=== PATIENT | female | born 1945 | race Caucasian/White ===

== ENCOUNTER 2018-10-02 17:33 | Inpatient (IN) | payer OTHER ==
[~2018-10-02] VITALS: Ht 170.2 cm; Wt 75.3 kg
[2018-10-02 17:39] VITALS: BP 119/60
[2018-10-02 18:59] LABS: ABSOLUTE EOSINOPHILS 0.1 thou/uL (0.0-0.7); ABSOLUTE LYMPHOCYTES 1.1 thou/uL (0.8-5.3); ABSOLUTE MONOCYTES 0.9 thou/uL (0.0-1.2); ABSOLUTE NEUTROPHILS 5.3 thou/uL (1.6-8.1); BASOPHILS 0.4 %; EOSINOPHILS 1.1 %; HEMATOCRIT 37.6 % (37.0-47.0); HEMOGLOBIN 12.9 gm/dL (12.0-15.0); LYMPHOCYTES 15.1 %; MCH 33.6 pg (26.0-34.0); MCHC 34.4 g/dL (28.0-37.0); MCV 97.9 fL (80.0-100.0); MONOCYTES 12.1 %; MPV 9.9 fl. (7.2-11.1); NUCLEATED RBCS 0 /100WBC; PLATELET COUNT* 115 thou/uL (150-400); POLYS 71.3 %; RBC 3.84 mil/uL (4.20-5.00); RDW-CV 13.9 % (10.5-14.5); WBC 7.4 thou/uL (4.0-11.0)
[2018-10-02 19:00] LABS: APTT 28.5 Seconds (25.0-31.3); PROTIME 10.2 Seconds (9.20-11.50)
[2018-10-02 19:07] LABS: ALBUMIN 3.3 g/dL (3.4-5.0); ALKALINE PHOSPHATASE 80 U/L (46-116); ANION GAP 8 mmol/L (7-16); BUN 14 mg/dL (7-18); CALCIUM 8.5 mg/dL (8.5-10.1); CHLORIDE 105 mmol/L (98-107); CO2 28 mmol/L (21-32); CREATININE 0.8 mg/dL (0.6-1.3); GLUCOSE 99 mg/dL (70-99); POTASSIUM 3.8 mmol/L (3.5-5.1); SGOT 11 U/L (15-37); SGPT 14 U/L (30-65); SODIUM 141 mmol/L (136-145); TOTAL BILIRUBIN 0.4 mg/dL (<0.1-1.0); TOTAL PROTEIN 6.7 g/dL (6.4-8.2); TROPONIN-I LEVEL <0.06 ng/mL (<0.06)
[2018-10-02 19:50] VITALS: BP 125/53
[2018-10-02 20:10] VITALS: BP 137/58
[2018-10-02 22:16] LABS: URINE BILIRUBIN NEGATIVE (Negative); URINE BLOOD NEGATIVE (Negative); URINE CLARITY CLEAR; URINE COLOR YELLOW; URINE GLUCOSE-RANDOM NEGATIVE (Negative); URINE KETONES NEGATIVE (Negative); URINE LEUKOCYTES-REFLEX NEGATIVE (Negative); URINE NITRITE-REFLEX NEGATIVE (Negative); URINE PROTEIN NEGATIVE (Negative); URINE SPECIFIC GRAVITY 1.015 (1.005-1.030); URINE UROBILINOGEN 0.2 E.U./dl (0.2-1.0)
[2018-10-03 04:00] VITALS: BP 132/52
--- NOTE | 2018-10-03 05:45 | NUR ---
PT ADMITTED TO ROOM 305 FROM ER. VSS ON RA. ASSESSMENT COMPLETED. PT WORRIED ABOUT HER WHOM SHE LIVES WITH AND TAKES CARE OF. PT SAYS HER HAS STAGE 5 AL[employer]ERS AND SHE TAKES CARE OF HIM. SHE DOES NOT HAVE ANY CHILDREN OR FAMILY MEMBERS TO ASSIST IN CARE WHILE IN HOSPTIAL. PT'S FRIEND STAYED WITH PT'S LAST NIGHT BUT SHE HAS TO GO TO WORK THIS AM. PT WORRIED AND CONCERNED ON WHO TO TAKE CARE OF WHEN FRIEND LEAVES FOR WORK. PT ORIENTED TO ROOM AND CALL LIGHT. PT AGREES AND SIGNS FALL PRECAUTION. 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 NOSE SWAP DONE TO MAINTAIN OR RULE OUT ISOLATION. PAIN MEDS GIVENS THIS SHIFT. RELIEF NOTED. IV ABX INFUSED. NPO. ORTHO CONSULT TO BE CALLED IN THIS AM. CASE MGT CONSULT. WILL CONTINUE TO MONITOR CALL LIGHT WITHIN REACH. WILL CONTINUE TO MONITOR.
[2018-10-03 07:11] VITALS: BP 128/54
--- NOTE | 2018-10-03 10:22 | EKG ---
[place] [address] ELECTROCARDIOGRAM REPORT Name: DOROTHEA DEVLIN Room: [address] ADM IN [facility]#: [id number] Admission: 10/02/18 Attend Phys: Gabrielle Del Toro MD Discharge: Date of : 41 Report #: [id number] THIS REPORT FOR: //name// [facility] ED Test Date: 2018-10-02 Test Time: 18:28:10 Pat Name: DOROTHEA DEVLIN Department: Room: [facility] Gender: F Snow Plow Operator: : 1945 Requested By: Luis Soares Order Number: [id number] MD: Akhil Vaughn Measurements Intervals [place] Rate: 64 P: 79 VA: 182 QRS: 50 QRSD: 127 T: 53 QT: 440 QTc: 454 Interpretive Statements Sinus rhythm Nonspecific intraventricular conduction delay Compared to ECG 04/01/2007 13:09:22 no change Electronically Signed On 10-03-2018 10:22:23 CDT by Akhil Vaughn [email or web address] <ELECTRONICALLY SIGNED> By: Akhil Vaughn MD, [facility] 10/03/18 1022 182 27 Akhil Vaughn MD, [facility] /EPI
--- NOTE | 2018-10-03 11:10 | NUR ---
SW met with pt to complete initial assessment, introduce self, and SW role. Pt is alert, oriented. Pt lives at home with her and is the caregiver for as he has dementia. Pt explained that pt friend is with pt for now but pt friend will be working this weekend. SW discussed in home services/private duty care and pt said that pt friend called about this and pt is aware this would be $22 an hour most likely. SW discussed pt [place] benefits may help cover some of the cost or reimburse possibly. Pt aware she may need rehab; SW questioned fdc care if needed for pt but pt would much rather have pt remain in home with in home care. SW called pt friend and left message with VA benefit possible assistance with cost of in home care and offered pt friend to call SW back with any other questions or concerns. Pt independent prior to falling and hospitalization; pt does not have any DME or hx with HH or SNF. SW to continue to follow to assist with safe dc planning.
[2018-10-03 16:06] VITALS: BP 113/49
--- NOTE | 2018-10-03 16:08 | NUR ---
ASSESSMENT COMPLETE. PT ALERT AND ORIENTED X4. CT OREDERED THIS AM AND ORTHO REPORTS NO NEED FOR SURGERY AND PUT IN WEIGHT BEARING ORDERS. PT/OT ORDERED. PT VSS. DENIES N/V. TOLERATING MEALS. TAYLOR IN PLACE. IV FLUIDS INFUSING. PHYSICAL THERAPY ABLE TO HELP PATIENT TO STANDING POSITION AT BEDSIDE WITH WALKER AND GAIT BELT. PT HAS FAMILY AT BEDSIDE. SEE ASSESSMENT AND VITALS FOR OTHER DETAILS. CALL LIGHT WITHIN REACH, WILL CONTINUE PLAN OF CARE
--- NOTE | 2018-10-03 19:09 | NUR ---
I RECEIVED THE PATIENT A TRANSFER FROM AT 1815. SHE IS ALERT AND ORIENTED X4 AND IS A Q2 TURN. BED IS IN THE LOW LOCKED POSITION AND CALL LIGHT IS IN REACH. HOURLY ROUNDING IS COMPLETED AND PATIENT NEEDS ARE MET. PAIN IS DENIED. ORTHO SAYS SHE DOES NOT NEED SURGERY. CASE MANAGEMENT HAS BEEN CONTACTED TO HELP ASSIST WITH THE . WILL CONTINUE TO MONITOR.
[2018-10-03 21:00] VITALS: BP 115/40
[2018-10-04 04:19] LABS: ABSOLUTE EOSINOPHILS 0.1 thou/uL (0.0-0.7); ABSOLUTE LYMPHOCYTES 1.4 thou/uL (0.8-5.3); ABSOLUTE NEUTROPHILS 3.1 thou/uL (1.6-8.1); BASOPHILS 0.4 %; EOSINOPHILS 1.2 %; HEMATOCRIT 31.8 % (37.0-47.0); HEMOGLOBIN 11.1 gm/dL (12.0-15.0); LYMPHOCYTES 25.5 %; MCH 34.4 pg (26.0-34.0); MCV 98.5 fL (80.0-100.0); MONOCYTES 18.6 %; MPV 9.4 fl. (7.2-11.1); NUCLEATED RBCS 0 /100WBC; PLATELET COUNT* 88 thou/uL (150-400); POLYS 54.3 %; RBC 3.23 mil/uL (4.20-5.00); RDW-CV 13.3 % (10.5-14.5); WBC 5.6 thou/uL (4.0-11.0)
[2018-10-04 04:22] LABS: CALCIUM 8.1 mg/dL (8.5-10.1); CREATININE 0.7 mg/dL (0.6-1.3); POTASSIUM 3.6 mmol/L (3.5-5.1)
--- NOTE | 2018-10-04 05:21 | NUR ---
PT ALERT AND ORIENTED. VSS ON RA. ASSESSMENT COMPLETED. PT DID NOT GET ANY PAIN MEDS THIS SHIFT. IV ABX INFUSED ORDERED. PT VERBALIZES DESIRE TO BE SENT TO A FACILITY WITH ACCOMODATIONS FOR HER AND HER . PT SLEPT MOST OF SHIFT. FALL PRECAUTIONS IN PLACE. CALL LIGHT WITHIN REACH. PT PLEASANT AND CALLS OUT APPROPRIATELY. WILL CONTINUE TO MONITOR.
[2018-10-04 08:00] VITALS: BP 157/67
--- NOTE | 2018-10-04 12:23 | NUR ---
SW met with pt to provide private duty and community resources and also options for SNF or LTC living if needed in the future. Pt said that she is paying the $22 an hour at the moment for pt to have a caregiver in the home. SW to continue to follow to assist with safe dc planning and discuss with pt possible SNF rehab needed.
--- NOTE | 2018-10-04 18:53 | NUR ---
AM ASSESSMENT AND VITAL SIGNS COMPLETED DOCUMENTED. PT WAS VERY TEARFUL TODAY, SHE IS VERY WORRIED ABOUT HER THAT IS DEPENDENT ON HER. PRN PAIN AND ANXIETY MEDICATIONS GIVEN WITH SOME RELIEF. PT GIVEN A LOT OF REASSURANCE AND SW IS WORKING WITH HER PERSONAL ISSUES. FALL PRECAUTIONS AND HOURLY ROUNDING CONTINUE.
[2018-10-04 20:30] VITALS: BP 104/43
[2018-10-05 04:16] LABS: ABSOLUTE EOSINOPHILS 0.1 thou/uL (0.0-0.7); ABSOLUTE LYMPHOCYTES 1.5 thou/uL (0.8-5.3); ABSOLUTE NEUTROPHILS 2.4 thou/uL (1.6-8.1); BASOPHILS 0.4 %; EOSINOPHILS 1.4 %; HEMATOCRIT 31.4 % (37.0-47.0); HEMOGLOBIN 10.8 gm/dL (12.0-15.0); LYMPHOCYTES 29.7 %; MCH 34.2 pg (26.0-34.0); MCHC 34.3 g/dL (28.0-37.0); MCV 99.6 fL (80.0-100.0); MPV 9.5 fl. (7.2-11.1); NUCLEATED RBCS 0 /100WBC; PLATELET COUNT* 91 thou/uL (150-400); POLYS 48.5 %; RBC 3.15 mil/uL (4.20-5.00); RDW-CV 14.3 % (10.5-14.5); WBC 4.9 thou/uL (4.0-11.0)
--- NOTE | 2018-10-05 06:44 | NUR ---
Alert and oriented x 4. She is toe touch weight bearing on the right lower extremity, up with assist x 1 w/walker and gaitbelt. Vitals are stable. Shehas had pain meds x 3. She has slept well.
[2018-10-05 08:00] VITALS: BP 107/52
--- NOTE | 2018-10-05 14:42 | NUR ---
Received request from nurse to speak with pt re: her home situation and spouse. Pt said her is currently on service with [facility]. Pt said someone told her to call a company re: private duty caregivers since she is in the hospital and friend is working and unable to care for spouse. Pt said she signed paperwork for someone from [facility] ([phone]) to provide private duty caregivers for spouse. Spoke with Venu with [facility]. He said he would have his social media senior associate speak with pt on Sunday to try to make more affordable arrangements for spouse while pt is hospitalized. Spouse is an elopement risk and has a therapy cat. Spouse is incontinent. Pt is concerned re: her and also concerned about the finances. Spouse may qualify for respite stay with hospice. Spouse has not received care at a [place] hospital and does not have service connection. Spouse served during the [place] War. Pt said her niece lives down the road from her, but she has not spoken to her for over 3 years. Pt said she has a great niece in [place]. Pt said she does not have siblings. Asked the patient how she had a niece if she did not have siblings. Pt then remembered that she has a sister who lives in [place]. She has not spoken with her sister since their mother 4 years ago. Will await assistance [facility] worker.
--- NOTE | 2018-10-05 16:18 | NUR ---
PATIENT REFUSING TO GET UP TO CHAIR THIS AM, PATIENT EDUCATION AND ENCOURAGEMENT GIVEN. PATIENT ONLY DID LEG EXERCISES WITH PT THIS AM DUE TO NAUSEA PER PHYSICAL THERAPIST. PATIENT GIVEN PRN ZOFRAN WITH GOOD RELIEF NOTED. PATIENT REFUSING PAIN MEDICATION THIS SHIFT, PATIENT EDUCATED THAT SHE SHOULD TAKE PAIN MEDICATION AROUND DINNER TIME AT LEAST THIS EVENING, PATIENT AGREEABLE. CM SPOKE WITH PATIENT TODAY REGARDING DISCHARGE PLANS, REHAB CONS WAS PLACED BY DR. LARSON.
[2018-10-05 16:32] VITALS: BP 103/41
[2018-10-05 20:40] VITALS: BP 115/44
--- NOTE | 2018-10-06 07:19 | NUR ---
PATIENT HAS SLEPT OFF AND ON DURING THE NIGHT. NO C/O PAIN AND REFUSES NEEDING PAIN MEDICATION. VSS ON RA. PATIENT TURNED EVERY 2HRS AND PRN, AND PATIENT REPOSITIONS SELF WELL. TAYLOR TO DEPENDENT DRAINAGE WITH ADEQUATE YELLOW URINE OUTPUT. IV IN LEFT AC-SL. PATIENT INSTRUCTED TO USE CALL LIGHT WHEN NEEDING ASSISTANCE. HOURLY ROUNDS MADE. WILL CONTINUE WITH PLAN OF CARE AND NURSING TO MONITOR.
[2018-10-06 07:40] VITALS: BP 106/58
[2018-10-06 15:59] VITALS: BP 97/46
--- NOTE | 2018-10-06 16:35 | NUR ---
PATIENT UP WITH THERAPY, AMBULATING IN [place]. DR. BEGUM FROM REHAB SAW PATIENT BUT PATIENT DOES NOT QUALIFY. CM ALREADY CONSULTED FOR SNF PLACEMENT. PRN OXY IR FOR PAIN. BRANDON HOYOS'Darryl THIS EVENING, PATIENT UP TO BSC TO VOID AND DID HAVE A BM.
[2018-10-06 20:30] VITALS: BP 142/50
--- NOTE | 2018-10-07 06:08 | NUR ---
PATIENT HAS SLEPT WELL THROUGHOUT MOST OF THE NIGHT. VSS ON RA. MEDICATIONS GIVEN ORDERED AND CHARTED. PATIENT DOES C/O SOME PAIN WHEN GETTING UP NOW TO USE THE RESTROOM SINCE TAYLOR WAS REMOVED. IV IN LEFT AC-SL. PATIENT INSTRUCTED TO USE CALL LIGHT WHEN NEEDING ASSISTANCE. HOURLY ROUNDS MADE. WILL CONTINUE WITH PLAN OF CARE AND NURSING TO MONITOR.
[2018-10-07 08:00] VITALS: BP 126/65
--- NOTE | 2018-10-07 10:27 | NUR ---
SW faxed referral for SNF to pt preference of [facility] to attention admissions. [phone] fax [phone]. SW to continue to follow to assist with safe dc planning and SNF placement as recommended.
[2018-10-07] MEDS ORDERED: XANAX 0.25 MG0.25 MG PO (11:26)
[2018-10-07] MEDS ORDERED: ALBUTEROL2.5 MG/31 INH (11:26)
[2018-10-07] MEDS ORDERED: LOVENOX40 MG/0.4 SUBQ (11:28)
[2018-10-07] MEDS ORDERED: OXYCODONE HCL 55 MG PO (11:30)
[2018-10-07] MEDS ORDERED: CEFDINIR300 MG PO (11:31)
[2018-10-07] MEDS ORDERED: TRAMADOL 50 MG50 MG PO (11:33)
[2018-10-07 11:35] VITALS: BP 126/65
[2018-10-07 16:00] VITALS: BP 99/45
--- NOTE | 2018-10-07 16:40 | NUR ---
PATIENT WORKING WITH THERAPY THROUGHOUT THE SHIFT. PRN OXY IR GIVEN FOR PAIN. LARGE BM NOTED, VOIDING PER BSC. PATIENT TERAFUL AND FUSSY WITH STAFF AND PHYSICIAN AT TIMES BUT THEN CALMS DOWN SHORTLY AFTER. AWAITING INSURANCE AUTH FOR [facility].
[2018-10-07 20:20] VITALS: BP 111/32
--- NOTE | 2018-10-08 05:32 | NUR ---
PATIENT HAS SLEPT WELL THROUGHOUT THE NIGHT. VSS ON RA. PAIN MEDICATION GIVEN NEEDED AND CHARTED. PATIENT UP WITH ASSIST X 1 WITH GAITBELT AND WALKER AND IS TTWB. IV IN LEFT AC-SL. PATIENT INSTRUCTED TO USE CALL LIGHT WHEN NEEDING ASSISTANCE. HOURLY ROUNDS MADE. WILL CONTINUE WITH PLAN OF CARE AND NURSING TO MONITOR.
[2018-10-08 09:40] VITALS: BP 113/47
--- NOTE | 2018-10-08 09:53 | NUR ---
FLORENTIN called [facility] admissions and left a message for Willow to return call to check on status of referral and if there was any contact with pt insurance to determine insurance auth or not. FLORENTIN to continue to follow to assist with safe dc planning/SNF placement.
--- NOTE | 2018-10-08 13:07 | NUR ---
PT TO SMM PER W/C VAN PRN FOR PAIN GIVEN WITH FAIR EFFECT. PT REPORTS PAIN OF RT. HIP WITH MOVEMENT. PT IS ALERT AND ORIENTATED AND PLANS TO DISCHARGE TO SKILLED.DISCHARGED WITH ALL BELONGINGS AND CELL PHONE.
== END 2018-10-08 13:10 | DRG 535 ==
LOC: M.ERS 17:33 → M.TBA-ER 19:10 → M.ORTHSURG 19:10 → M.3W 19:10 → M.ORTHSURG 10-03 18:13
PROVIDERS: Emergency Medicine; Family Medicine; Internal Medicine; ADMIT Internal Medicine
DX: S72.114A Nondisplaced fracture of greater trochanter of right femur, initial encounter for closed fracture (principal); J15.6 Pneumonia due to other Gram-negative bacteria; M97.01XA Periprosthetic fracture around internal prosthetic right hip joint, initial encounter; Z96.641 Presence of right artificial hip joint; W01.0XXA Fall on same level from slipping, tripping and stumbling without subsequent striking against object, initial encounter; F17.210 Nicotine dependence, cigarettes, uncomplicated; Y93.89 Activity, other specified; Y92.89 Other specified places as the place of occurrence of the external cause; Y99.8 Other external cause status; Z88.2 Allergy status to sulfonamides; Z88.5 Allergy status to narcotic agent; Z88.8 Allergy status to other drugs, medicaments and biological substances

== ENCOUNTER → 2019-01-28 | Outpatient (CLI) | payer OTHER ==
[~2019-01-28] MED LIST: ALBUTEROL2.5 MG/31 INH; CEFDINIR300 MG PO; LOVENOX40 MG/0.4 SUBQ; OXYCODONE HCL 55 MG PO; TRAMADOL 50 MG50 MG PO; XANAX 0.25 MG0.25 MG PO
== END ==
LOC: M.RAD 13:27
DX: Z12.31 Encounter for screening mammogram for malignant neoplasm of breast (principal); N63.14 Unspecified lump in the right breast, lower inner quadrant; N63.13 Unspecified lump in the right breast, lower outer quadrant; M85.88 Other specified disorders of bone density and structure, other site; Z96.643 Presence of artificial hip joint, bilateral

== ENCOUNTER → 2019-02-06 | Outpatient (CLI) | payer OTHER ==
--- NOTE | 2019-02-07 16:06 | PATH ---
[address] [address] PATHOLOGY RPT PROCEDURE Name: MELISA DEVLIN Room: LISETTE Whitten#: [id number] Admission: 02/06/19 Date of : 41 Discharge: Report #: [id number] Path Case #: [id number] [facility] Accession Number: [id number] . 01 Material submitted: . breast - RIGHT BREAST, 5:00, 2CM FROM NIPPLE. Modifiers: right, 5:00 . 01 Clinical history: . 2.67 x 1.57 x 1.00 cm mass . 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 See comment. (ADILIA:maldonado; 02/07/2019) MBVeronica/02/07/2019 . 02 Comment: Specimen type: Image-guided core biopsies Tumor site: Right breast, 5:00, 2 cm from nipple Tumor quantitation: Approximately 75% of submitted tissues Histologic type: Ductal adenocarcinoma with prominent mucinous features Histologic grade: Low-grade (I of III) Tubules, nuclei and mitoses: 1, 2, 1 LVSI: Not identified Microcalcifications: Identified in non-neoplastic tissue Markers: Breast tumor profile pending Block: A1 . . Essentially all of the malignancy in the submitted tissue cores shows mucinous features and if the tumor mass is found to be greater than 90% of this pattern, it is consistent with mucinous carcinoma which carries a better prognosis than ductal carcinoma not otherwise specified. Scattered foci of low-grade DCIS are also seen in proximity to the invasive tumor and is noted to involve a 4 mm papilloma in A1. Breast tumor profile studies are pending on A1 and will be the subject of an addendum report. Reviewed with Dr. Mariah Lopez who agrees with the diagnosis. Jennifer (acting [facility] breast navigator) notified at approximately 1540 on 02/07/2019. . (ADILIA:maldonado; 02/07/2019) . 02 Electronically signed: . Ru Chong MD, [place] [address] PATHOLOGY RPT PROCEDURE Name: MELISA DEVLIN Room: LISETTE Whitten#: [id number] Admission: 02/06/19 Date of : 41 Discharge: Report #: [id number] Path Case #: [id number] NPI- [id number] . 01 Gross description: . Received in formalin labeled "Melisa Devlin, right breast 5:00 2 cm FN," are multiple needle cores of yellow-gill fibrofatty tissue measuring 3.4 x 2.9 x 0.7 cm in aggregate dimensions. The tissue is submitted in its entirety in cassettes A1 through A3. The cold ischemic time is 5 minutes. The total formalin fixation time is 11 hours and 13 minutes. (TSD; 02/06/2019) TOB/TOB . 02 Pathologist provided ICD-10: C50.911, D05.11, D24.1 . 02 CPT . 014836 Specimen Comment: A courtesy copy of this report has been sent to Specimen Comment: [phone], , . Specimen Comment: Report sent to ,DR ARDON / DR AC Performed at: 01 [facility] [address], [place], [place] [id number] MD Marco Kay MD Phone: [phone] Performed at: 02 [facility] [address], [place], [place] [id number] MD Ru Chong MD Phone: [phone]
== END | disposition home or self-care (01) ==
LOC: M.ULTRA 08:23
DX: C50.911 Malignant neoplasm of unspecified site of right female breast (principal); D24.1 Benign neoplasm of right breast; Z88.2 Allergy status to sulfonamides; Z88.8 Allergy status to other drugs, medicaments and biological substances; Z79.899 Other long term (current) drug therapy; Z79.891 Long term (current) use of opiate analgesic; Z98.890 Other specified postprocedural states; Z87.01 Personal history of pneumonia (recurrent)

== ENCOUNTER → 2019-02-26 | Outpatient (CLI) | payer OTHER ==
[~2019-02-26] MED LIST changes: +CALCIUM500 MG PO; +NORCO 5-325 TA1 EAC1 PO; +VITAMIN D1000 UNI1 PO; +ZOLOFT25 MG PO
[2019-02-26 13:27] LABS: CREATININE 0.8 mg/dL (0.6-1.3)
--- NOTE | 2019-02-28 17:06 | PATH ---
[address] [address] PATHOLOGY RPT PROCEDURE Name: MELISA DEVLIN Room: [facility] MICHAEL Whitten#: [id number] Admission: 02/26/19 Date of : 41 Discharge: Report #: [id number] Path Case #: [id number] [facility] Accession Number: [id number] . 01 Material submitted: . lymph node - RIGHT AXILLARY NODE. Modifiers: right, axillary tail . 01 Clinical history: . 1.57 x .63 x 1.03cm Hx ductal adenocarcinoma . 02 Diagnosis: Right axillary node, image-guided core biopsy: - Benign lymphoid tissue. (ADILIA:maldonado; 02/28/2019) MBR 02/28/2019 1036 Local . 02 Electronically signed: . Ru Chong MD, Pathologist NPI- [id number] . 01 Gross description: . Received in formalin labeled "Melisa Devlin, right axillary node," are four needle core fragments of yellow-caban soft tissue ranging from 0.3 cm to 1.7 cm in length, and measuring 0.1 cm each in diameter. The specimen is submitted entirely in cassettes A1 through A3. ([facility]; 02/27/2019) XDC/XDC 02/27/2019 1030 Local . 02 Pathologist provided ICD-10: Z85.3 . 02 CPT . 620144 Specimen Comment: A courtesy copy of this report has been sent to Specimen Comment: [phone], , , . Specimen Comment: Report sent to ,DR AC,DR AGUILERA / DR ARDON Performed at: [address], [place] [id number] MD Marco Kay MD Phone: [phone] Performed at: 02 [facility] [address], [place], [place] [id number] MD Ru Chong MD Phone: [phone]
== END | disposition home or self-care (01) ==
LOC: M.LAB 12:30 → M.MRI 13:30
PROVIDERS: Surgery
DX: R59.0 Localized enlarged lymph nodes (principal); I25.10 Atherosclerotic heart disease of native coronary artery without angina pectoris; Z85.3 Personal history of malignant neoplasm of breast; Z98.890 Other specified postprocedural states; Z88.2 Allergy status to sulfonamides; Z88.8 Allergy status to other drugs, medicaments and biological substances; Z79.899 Other long term (current) drug therapy

== ENCOUNTER → 2019-03-14 | Day surgery (SDC) | payer OTHER ==
[2019-03-14 06:49] LABS: HEMATOCRIT 38.8 % (37.0-47.0); HEMOGLOBIN 13.6 gm/dL (12.0-15.0); MCH 33.9 pg (26.0-34.0); MCHC 35.1 g/dL (28.0-37.0); MCV 96.7 fL (80.0-100.0); MPV 9.4 fl. (7.2-11.1); RBC 4.02 mil/uL (4.20-5.00); RDW-CV 13.7 % (10.5-14.5); WBC 5.6 thou/uL (4.0-11.0)
[2019-03-14 07:02] LABS: CALCIUM 9.3 mg/dL (8.5-10.1); CREATININE 0.8 mg/dL (0.6-1.3); POTASSIUM 3.7 mmol/L (3.5-5.1)
[2019-03-14 07:07] LABS: ALBUMIN 3.7 g/dL (3.4-5.0); TOTAL BILIRUBIN 0.5 mg/dL (<0.1-1.0); TOTAL PROTEIN 7.3 g/dL (6.4-8.2)
--- NOTE | 2019-03-19 16:06 | PATH ---
[address] [address] PATHOLOGY RPT PROCEDURE Name: MELISA DEVLIN SARITA Room: [facility].R.#: [id number] Admission: 03/14/19 Date of : 41 Discharge: Report #: [id number] Path Case #: [id number] [facility] Accession Number: [id number] . 01 Material submitted: . PART A: breast - RIGHT BREAST CANCER, LONG LATERAL, SHORT SUPERIOR, DOUBLE DEEP. Modifiers: right PART B: breast - RIGHT BREAST MEDIAL MARGIN, STITCH MORAES NEW MEDIAL MARGIN. Modifiers: right, medial PART C: breast - RIGHT BREAST SUPERIOR MARGIN, STITCH MORAES NEW SUPERIOR MARGIN. Modifiers: right, superior PART D: breast - RIGHT BREAST LATERAL MARGIN, STITCH MORAES NEW LATERAL MARGIN. Modifiers: right, lateral PART E: breast - RIGHT BREAST INFERIOR MARGIN, STITCH MORAES NEW INFERIOR MARGIN. Modifiers: right, inferior PART F: breast - RIGHT BREAST POSTERIOR MARGIN, STITCH MORAES NEW POSTERIOR MARGIN. Modifiers: right, posterior PART G: breast - RIGHT BREAST ANTERIOR MARGIN, STITCH MORAES NEW ANTERIOR MARGIN. Modifiers: right, anterior PART H: lymph node - RIGHT SENTINEL LYMPH NODE #1, HOT, BLUE, TOO HIGH TO COUNT. Modifiers: right PART I: lymph node - RIGHT SENTINEL LYMPH NODE #2, HOT, BLUE, COUNT [id number]. Modifiers: right . 01 Clinical history: . Breast cancer. . 02 Diagnosis: A. 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 - DUCTAL CARCINOMA IN SITU (DCIS), NUCLEAR GRADE I, SOLID AND CRIBRIFORM TYPES, SPANNING 13 MM, WITH NO MARGINAL INVOLVEMENT IDENTIFIED AND CLOSEST (SUPERIOR NEAR POSTERIOR/DEEP), LOCATED 0.2 MM AWAY. (SEE COMMENT) . B. Right breast medial margin: - DCIS, NUCLEAR GRADE I, SOLID TYPE, SPANNING 2 MM, ADJACENT TO "OLD" MARGIN, WITH FINAL SURGICAL MARGIN FREE OF INVOLVEMENT, LOCATED 7 MM AWAY. - Breast tissue with fat necrosis and mild chronic inflammation suggesting prior biopsy tract and cystic apocrine change and luminal calcifications, negative for invasive neoplasm. (See comment) . C. Right breast superior margin: - Benign breast tissue with usual ductal epithelial hyperplasia, cystic apocrine change, mild chronic inflammation, and luminal calcifications, negative for atypia. (See comment) . D. Right breast lateral margin: [place] [address] PATHOLOGY RPT PROCEDURE Name: MELISA DEVLIN Room: [facility] M.Chun#: [id number] Admission: 03/14/19 Date of : 41 Discharge: Report #: [id number] Path Case #: [id number] - Benign breast tissue with usual ductal epithelial hyperplasia, mild chronic inflammation and luminal calcifications, negative for atypia. (See comment) . E. Right breast inferior margin: - Benign breast tissue with usual ductal epithelial hyperplasia, ectatic ducts and mild chronic inflammation, negative for atypia. (See comment) . F. Right breast posterior margin: - DCIS, NUCLEAR GRADE I, SOLID AND CRIBRIFORM TYPES, SPANNING 3 MM, ADJACENT TO "OLD" MARGIN, WITH FINAL SURGICAL MARGIN FREE OF INVOLVEMENT BY 1.3 MM. - Breast tissue with hypocellular stromal nodule, most consistent with hamartoma, and with mild chronic inflammation and luminal calcifications, negative for invasive neoplasm. (See comment) . G. Right breast anterior margin: - Benign breast tissue with cystic apocrine change, mild chronic inflammation and luminal calcifications, negative for atypia. . H. Right sentinel lymph node #1 (hot, blue, too high to count): - One benign lymph node (0/1). (See comment) . I. Right sentinel lymph node #2 (hot, blue, count 09205): - One benign lymph node (0/1). (See comment) . (ADILIA:mary jane; 03/19/2019) . . . . Surgical Pathology Cancer Case Summary . Protocol posting date: February 2019 . INVASIVE CARCINOMA OF THE BREAST: Resection . . Procedure ___ Excision (less than total mastectomy) . Specimen Laterality ___ Right . + Tumor Site (select all that apply, as appropriate) + ___ Not specified . Tumor Size ___ Greatest dimension: 22 [place] [address] PATHOLOGY RPT PROCEDURE Name: MELISA DEVLIN Room: [facility] Maria Dolores#: [id number] Admission: 03/14/19 Date of : 41 Discharge: Report #: [id number] Path Case #: [id number] + Additional dimensions: 11 x 8 mm . Histologic Type ___ Mucinous carcinoma . Histologic Grade . Glandular (Acinar)/Tubular Differentiation ___ Score 1 (>75% of tumor area forming glandular/tubular structures) . Nuclear Pleomorphism ___ Score 2 (cells larger than normal with open vesicular nuclei, visible nucleoli, and moderate variability in both size and shape) . Mitotic Rate ___ Score 1 . . Overall Grade ___ Grade 1 (scores of 3, 4, or 5) . . + Tumor Focality + ___ Single focus of invasive carcinoma . . Ductal Carcinoma In Situ (DCIS) ___ Present + ___ Negative for extensive intraductal component (EIC) (SEE COMMENT) . . + Size (Extent) of DCIS + Estimated size (extent) of DCIS is at least: 13 mm (SEE COMMENT) + Number of blocks with DCIS: 9 + Number of blocks examined: 32 . . + Architectural Patterns + ___ Cribriform + ___ Solid . . + Nuclear Grade + ___ Grade I (low) . . + Necrosis + ___ [place] [address] PATHOLOGY RPT PROCEDURE Name: MELISA DEVLIN [id number] Admission: 03/14/19 Date of : 41 Discharge: Report #: [id number] Path Case #: [id number] . + Lobular Carcinoma In Situ (LCIS) + ___ No LCIS in specimen . . . Margins . Invasive Carcinoma Margins ___ Uninvolved by invasive carcinoma Distance from closest margin: ___ 7.7 mm (SEE COMMENT) . . . DCIS Margins ___ Uninvolved by DCIS . Distance from closest margin: 1.3 mm . . Regional Lymph Nodes ___ Uninvolved by tumor cells Total Number of Lymph Nodes Examined: 2 Number of Madison Nodes Examined: 2 . . Treatment Effect ___ No known presurgical therapy . . + Lymphovascular Invasion + ___ Not identified . . + Dermal Lymphovascular Invasion + ___ No skin present . . PATHOLOGIC STAGE CLASSIFICATION (pNM, AJCC 8th Edition) . . Primary Tumor (pT) ___ pT2:Tumor >20 mm but </=50 mm in greatest dimension . . Regional Lymph Nodes Modifier ___ (sn):Mad[place] node(s) [place] [address] PATHOLOGY RPT PROCEDURE Name: MELISA DEVLIN Room: [facility] Maria Dolores#: [id number] Admission: 03/14/19 Date of : 41 Discharge: Report #: [id number] Path Case #: [id number] . Regional Lymph Nodes (pN) ___ pN0:No regional lymph node metastasis identified or ITCs only# . . + Ancillary Studies . + ___ Breast Biomarker Testing Performed on Previous Biopsy + Testing Performed on , A1 . . + Estrogen Receptor (ER) + ___ Positive 98% . + Progesterone Receptor (PgR) + ___ Positive 92% . + HER2 (by immunohistochemistry) + ___ Negative (Score 0) . + ___ Ki-67 percentage of positive nuclei: 10% . + Microcalcifications + ___ Present in non-neoplastic tissue . + Clinical History + ___ Prior history of breast cancer: Image-guided core biopsy of right breast 5:00, 2.0 cm from nipple showing infiltrating ductal adenocarcinoma, low grade with prominent mucinous features spanning 15 mm in association with ductal carcinoma in situ, nuclear Grade I, solid and cribriform types performed around 02/06/2019 ([id number]) . (ADILIA:mm; 03/19/2019) [facility] 03/19/2019 1541 Local . 02 Comment: The invasive tumor is seen to be of pure mucinous type. The final closest surgical margin (posterior) is given as 7.7 mm away, which includes the closest approach within the luumpectomy (A10) as well as the additional posterior marginal tissue (specimen F). . Low grade DCIS is also present and likely spans more than the 13 mm contiguous span identified in specimen A as it is also identified in the additional posterior margin, where it spans 3 mm (F3). An isolated separate 2 mm focus, which appears histologically identical to other foci of DCIS, is seen in additional right medial margin tissue (B4 and B5) and is interpreted to be a separate isolated focus as DCIS is not seen in tissues sequentially submitted from the [place] [address] PATHOLOGY RPT PROCEDURE Name: MELISA DEVLIN SARITA Room: [facility]#: [id number] Admission: 03/14/19 Date of : 41 Discharge: Report #: [id number] Path Case #: [id number] lateral/more central aspect of the lumpectomy (A1-A4). . Properly-controlled E-cadherin stain performed on B5 strongly highlights the cells supporting DCIS. . Properly-controlled keratin AE1/AE3 performed on H1 and I1 show no evidence of metastatic tumor. . (ADILIA:mm; 03/19/2019) . 02 Electronically signed: . Ru Chong MD, Pathologist NPI- [id number] . 01 Gross description: . A. Received in formalin labeled "Melisa Devlin, right breast cancer long stitch lateral short stitch superior double stitch deep" is an oriented breast lumpectomy specimen weighing 12 g and measuring 4.1 cm from superior to inferior, 4.6 cm from medial to lateral, 1.4 cm from anterior to posterior. A guidewire extends from the superior to inferior aspects of the specimen. The specimen is inked as follows: superior-red, inferior-blue, anterior-green, posterior-black, lateral-orange, medial-yellow. The specimen is sectioned from lateral to medial into 12 slices. Within slices 5-10 is a caban-white stellate mass measuring 2.2 x 1.1 x 0.8 cm. The mass measures to the margins as follows: 0.3 cm to superior, 1.2 cm to inferior, 0.3 to anterior, less than 0.1 cm to posterior, 1.2 cm to lateral, and 1.2 cm to medial. A biopsy site is present, but a biopsy clip is not identified. The uninvolved breast parenchyma is yellow and lobulated. The specimen is submitted entirely as follows: A1 slice 1, medial margin, perpendicular sections A2-A11 slices 2-11, submitted sequentially A12 slice 12, lateral margin, perpendicular sections . The specimen is removed from the patient at 1055 and placed in formalin at 1105 on March 14, 2019. The specimen is removed from formalin at 1850 on March 16, 2019. . B. Received in formalin labeled "Melisa Devlin, right breast medial margin, stitch moraes new medial margin" is an oriented portion of yellow-caban lobulated fibroadipose tissue measuring 3.8 x 3.2 x 1.3 cm. The aspect with the suture (true margin) is inked black and the opposite aspect is inked blue. The specimen is serially sectioned and submitted entirely in cassettes B1-B5. . C. Received in formalin labeled "Melisa Devlin, right breast superior margin, stitch moraes new superior margin" is an oriented portion of yellow-caban lobulated fibroadipose tissue measuring 3.1 x 2.4 x 0.7 cm. The aspect with the suture (true margin) is inked black [place] [address] PATHOLOGY RPT PROCEDURE Name: MELISA DEVLIN SARITA Room: [facility].#: [id number] Admission: 03/14/19 Date of : 41 Discharge: Report #: [id number] Path Case #: [id number] aspect is inked blue. The specimen is serially sectioned and submitted entirely in cassettes C1-C3. . D. Received in formalin labeled "Melisa Devlin, right breast lateral margin, stitch moraes new lateral margin" is an oriented portion of yellow-caban lobulated fibroadipose tissue measuring 3.5 x 2.5 x 1.0 cm. The aspect with the suture (true margin) is inked black and the opposite aspect is inked blue. The specimen is serially sectioned and submitted entirely in cassettes D1-D4. . E. Received in formalin labeled "Melisa Devlin, right breast inferior margin, stitch moraes new inferior margin" is an oriented portion of yellow-caban lobulated fibroadipose tissue measuring 2.6 x 2.1 x 1.0 cm. The aspect with the suture (true margin) is inked black and the opposite aspect is inked blue. The specimen is serially sectioned and submitted entirely in cassettes E1-E2. . F. Received in formalin labeled "Melisa Devlin, right breast posterior margin, stitch moraes new posterior margin" is an oriented portion of yellow-caban lobulated fibroadipose tissue measuring 3.0 x 2.7 x 1.0 cm. The aspect with the suture (true margin) is inked black and the opposite aspect is inked blue. The specimen is serially sectioned to reveal a caban-white nodule measuring 1.4 x 0.8 x 0.7 cm. The nodule is located less than 0.1 cm from the not true margin, and 0.1 cm from the true margin. The specimen is submitted entirely in cassettes F1-F3. . G. Received in formalin labeled "Melisa Devlin, right breast anterior margin, stitch moraes new anterior margin" is an oriented portion of yellow-caban lobulated fibroadipose tissue measuring 4.0 x 3.1 x 0.5 cm. The aspect with the suture (true margin) is inked black and the opposite aspect is inked blue. The specimen is serially sectioned and submitted entirely in cassettes G1-G3. . H. Received in formalin labeled "Melisa Devlin, right sentinel lymph node #1" is a caban-pink lymph node measuring 0.6 x 0.4 x 0.4 cm. The specimen is serially sectioned and submitted in cassette H1. . I. Received in formalin labeled "Melisa Devlin, right sentinel lymph node #2" is a caban-pink lymph node measuring 2.0 x 0.9 x 0.5 cm. The specimen is serially sectioned and submitted in cassette I1. ([facility]; 03/16/2019) SY/[facility] 03/16/2019 1021 Local . 02 Pathologist provided ICD-10: C50.911, D05.11, N64.1, N61.0, N62 . 02 CPT . 800975, 085732, 453436, 472066, 049634, 257232, 801219, 958498, [id number], [id number] [place] [address] PATHOLOGY RPT PROCEDURE Name: MELISA DEVLIN SARITA Room: [facility].#: [id number] Admission: 03/14/19 Date of : 41 Discharge: Report #: [id number] Path Case #: [id number] Specimen Comment: A courtesy copy of this report has been sent to Specimen Comment: [phone], . Specimen Comment: Report sent to / DR ARDON Performed at: 01 [facility] [address], [place], [place] [id number] MD Marco Kay MD Phone: [phone] Performed at: 02 [facility] [address], [place], [place] [id number] MD Ru Chong MD Phone: [phone]
--- NOTE | 2019-04-16 12:35 | OP ---
[facility] [place] [address] OPERATIVE REPORT Name: DEVLINDOROTHEA SARITA Room: [facility]#: [id number] Admission: 03/14/19 Attend Phys: Munira David MD Discharge: Date of : 41 Report #: [id number] THIS REPORT FOR: //name// CC: Munira Cruz DATE OF SERVICE: 03/14/2019 PREOPERATIVE DIAGNOSIS: Malignant neoplasm lower inner quadrant, right female breast. POSTOPERATIVE DIAGNOSES: Malignant neoplasm lower inner quadrant, right female breast. Right breast deformity. PROCEDURE: 1. Injection of blue dye. 2. Right breast needle localized lumpectomy. 3. Right breast reconstruction using BioZorb and one single 4.5 x 4 cm local tissue flap. 4. BioZorb placement 2 x 3. 5. Right axillary sentinel lymph node biopsy. SURGEON: Munira David MD. MORPHOLOGY TEACHER: None. ANESTHESIA: General anesthesia. ESTIMATED BLOOD LOSS: 10 mL. COMPLICATIONS: None. FINDINGS: Clip in the mammographic specimen. COMPLICATIONS: None. IMPLANTS: A 2 x 3 BioZorb. SPECIMENS: 1. Right breast cancer. 2. Right breast new medial margin. 3. Right breast new superior margin. 4. Right breast new lateral margin. 5. Right breast new inferior margin. 6. Right breast new posterior margin. 7. Right breast new anterior margin. [place] [address] OPERATIVE REPORT Name: DOROTHEA DEVLIN SARITA Room: [facility]#: [id number] Admission: 03/14/19 Attend Phys: Munira David MD Discharge: Date of : 41 Report #: [id number] 8. Right axillary sentinel lymph node #1, hot, blue, too high to count. 9. Right axillary sentinel lymph node #2, hot, blue, 2 nodes, max count 24775. Other incision 5 cm in length, 3 cm from nipple 6 o'clock position periareolar. DISPOSITION: Stable to PACU. INDICATIONS FOR PROCEDURE: The patient is a 73-year-old female with imaging on 01/28/2019 showing a 2.3 cm irregular lobulated hypoechoic mass at the 5 o'clock right breast 2 cm from nipple with an adjacent 4 mm mass, which was 2 mm slightly anterior to the mass and a single small, but suspicious axillary lymph node. Biopsy on 02/06/2019 of the lesion was grade 1 invasive ductal carcinoma with mucinous features, ER/NY positive, HER-2 negative, Ki-67 10%. She subsequently had an ultrasound-guided biopsy of the lymph node, which was benign and an MRI, which confirmed the primary lesion and no satellite lesions. She was interested in breast conservation therapy due to the larger size of this lesion and the concern for some cosmetic deformity. I did discuss the use of BioZorb for local breast reconstruction with which she was interested. Risks and benefits for lumpectomy with BioZorb and sentinel node biopsy were discussed with the patient and delineated in the H and P and she agreed to proceed. DESCRIPTION OF PROCEDURE: The patient was brought to the operating room after informed consent had been obtained. She was placed under general anesthesia in the supine position with the right arm extended. A 5 mL of Lymphazurin blue was injected in the intradermal and subdermal location in the upper outer periareolar region of the right breast. Preoperatively, she had been taken to ultrasound for wire localization of the mass followed by Nuclear Medicine for injection for the sentinel node portion of the case. The right breast and axilla were prepped and draped in normal sterile manner. Prior to all skin incisions, a combination of 1% lidocaine plain and 0.5% Marcaine with epinephrine was used. Periareolar skin incision was made with a knife. This was deepened into the subcutaneous tissues using the Bovie electrocautery. A path was created toward the wire entrance site in the far inferior pole of the breast. Once the wire was identified, it was grasped with 2 hemostats and brought into the incision. The Bovie electrocautery was then used to excise a lump of tissue surrounding the palpable mass circumferentially. Once completely removed, it was labeled for orientation purposes, placed in the mammographic specimen tray and sent off for mammographic evaluation. Mammogram did confirm that the clip was indeed located within the specimen. The attention was then turned to the wound bed, it was copiously irrigated with normal saline. Hemostasis was obtained. Attention was turned to the medial margin. The region of the medial margin was grasped with an Allis clamp and Bovie electrocautery was used to excise a thin rim of tissue to encompass the new medial margin. This was then repeated in a similar manner in the superior, lateral, inferior, posterior and anterior margins. All of these were labeled for orientation purposes and sent off for permanent specimen. Attention was then redirected to the lumpectomy cavity. The BioZorb sizers were obtained and a 2 x 3 BioZorb was [address] [address] OPERATIVE REPORT Name: DOROTHEA DEVLIN Room: [facility]#: [id number] Admission: 03/14/19 Attend Phys: Munira David MD Discharge: Date of : 41 Report #: [id number] felt to be appropriate for placement. The wound bed was copiously irrigated with normal saline, again was noted to be adequately hemostatic. Four stay sutures were placed in the four quadrants of the lumpectomy bed. The 2 x 3 BioZorb was then placed on the field. I changed into sterile gloves, opened the box and removed the BioZorb from the box. I then placed it in the lumpectomy cavity. The 4 stay sutures were then used to place the BioZorb within the lumpectomy bed. The deeper tissues were then reapproximated over the BioZorb using interrupted sutures of 3-0 Vicryl. The deep dermal layers were closed with interrupted 3-0 Vicryl sutures and skin was closed with 4-0 Monocryl in a subcuticular manner. Of note, there had been a minor skin burn only on the wound edge due to the Bovie electrocautery, not being seated adequately within the cautery handle, the skin that was involved in this which was all along the incisional border was excised sharply with a knife prior to closure. The attention was then turned to the region of the axilla. Site of highest activity in the axilla was marked out with a marking pen. A skin incision was made in this region with a knife. This was deepened into the subcutaneous tissues using the Bovie electrocautery. A Weitlaner retractor was placed. The axillary fascia was divided and the region was explored. There were lots of ____ blue lymphatics noted. They were traced posteriorly to a small blue lymph node. This was isolated using a combination of Ligaclip and Bovie electrocautery dissection. Once completely removed, counts were obtained and this was sent off as sentinel node #1. Attention was then redirected to the axilla. There were additional areas of high counts noted. There were 2 small lymph nodes that were adjacent to each other that were noted in this region. These were isolated in combination with each other with the assistance of the Bovie and the Ligaclip dissection. Once completely removed, counts were obtained and these were sent off as sentinel node #2 although there were two lymph nodes within it. The wound bed was copiously irrigated with normal saline. It was noted to be adequately hemostatic. The Zeo probe was used to interrogate the axilla one final time. There were no additional hot counts noted. There were no other blue nodes noted. The axillary fascia was reapproximated with a single interrupted suture of 3-0 Vicryl. The deep dermal layers closed with interrupted 3-0 Vicryl sutures and skin was closed with 4-0 Monocryl in a subcuticular manner. Wounds were dressed with Dermabond dressing. The patient tolerated the procedure well. Sponge, lap and needle counts were correct x 2 at the end of procedure. She was transferred to recovery in stable condition. <ELECTRONICALLY SIGNED> By: Munira David MD 04/16/19 1235 1226 [id number] David MD /nt
== END | disposition home or self-care (01) ==
LOC: M.SUR 06:14
PROVIDERS: Surgery
DX: C50.311 Malignant neoplasm of lower-inner quadrant of right female breast (principal); N64.1 Fat necrosis of breast; N61.0 Mastitis without abscess; N62 Hypertrophy of breast; N64.89 Other specified disorders of breast; Z98.890 Other specified postprocedural states; Z79.891 Long term (current) use of opiate analgesic; Z87.01 Personal history of pneumonia (recurrent); Z79.899 Other long term (current) drug therapy

== ENCOUNTER → 2019-11-10 | Outpatient (CLI) | payer OTHER | LOC: M.RAD 10:40 | PROVIDERS: ATTEND Nurse Practitioner Family | DX: C50.511 Malignant neoplasm of lower-outer quadrant of right female breast (principal); Z98.890 Other specified postprocedural states ==

== ENCOUNTER → 2020-01-01 | Outpatient (CLI) | payer OTHER | LOC: M.ULTRA 12:56 | PROVIDERS: ATTEND Registered Nurse Diabetes Educator | DX: R22.0 Localized swelling, mass and lump, head (principal) ==

== ENCOUNTER → 2020-03-16 | Outpatient (CLI) | payer OTHER | LOC: M.RAD 03-15 14:00 | PROVIDERS: ATTEND Surgery | DX: Z08 Encounter for follow-up examination after completed treatment for malignant neoplasm (principal); Z98.890 Other specified postprocedural states; Z85.3 Personal history of malignant neoplasm of breast ==

== ENCOUNTER → 2020-03-31 | Outpatient (CLI) | payer OTHER | LOC: M.RAD 15:07 | PROVIDERS: ATTEND Registered Nurse Diabetes Educator | DX: M19.042 Primary osteoarthritis, left hand (principal); M19.041 Primary osteoarthritis, right hand ==

== ENCOUNTER → 2020-11-15 | Outpatient (CLI) | payer OTHER | LOC: M.RAD 10:17 | PROVIDERS: ATTEND Internal Medicine | DX: N60.11 Diffuse cystic mastopathy of right breast (principal); N60.12 Diffuse cystic mastopathy of left breast; R92.8 Other abnormal and inconclusive findings on diagnostic imaging of breast ==

== ENCOUNTER → 2021-02-02 | Outpatient (CLI) | payer OTHER | LOC: M.RAD 13:13 | PROVIDERS: ATTEND Registered Nurse Diabetes Educator | DX: M85.88 Other specified disorders of bone density and structure, other site (principal); Z78.0 Asymptomatic menopausal state ==